=== PATIENT | male | born 1970 | race Caucasian/White ===

== ENCOUNTER 2017-09-13 16:47 | Emergency (ER) | payer SELFPAY ==
[~2017-09-13] VITALS: Ht 185.4 cm; Wt 78.9 kg
--- NOTE | 2017-09-13 17:30 | NUR ---
PATIENT TO BED 9.
[2017-09-13 18:10] VITALS: BP 139/89
--- NOTE | 2017-09-13 18:20 | NUR ---
PATIENT PRESENTS TO ED WITH BOIL/ABSCESS TO LEFT THIGH X 3 DAYS . PT STATES . DENIES N/V/D; SKIN IS PINK/WARM/DRY; AAOX4 WITH EVEN AND STEADY GAIT; LUNGS CLEAR BL; HR EVEN AND REGULAR; PT DENIES ANY FEVER, CP, SOB, OR COUGH AT THIS TIME; PATIENT STATES PAIN OF 3/10 AT THIS TIME; VSS; PATIENT POSITIONED FOR COMFORT; HOB ELEVATED; BEDRAILS UP X2; BED DOWN. ER MD MADE AWARE OF PT STATUS.
[2017-09-13] MEDS ORDERED: LIDOCAINE 1% 500 MG/50 ML VIAL INJ SCH (18:45)
[2017-09-13] MEDS ORDERED: BACITRACIN OINT 500 UNITS/GM PKT TP ONE (18:45)
--- NOTE | 2017-09-13 18:51 | NUR ---
BACITRACIN OINTMENT AND LIDOCAINE AT BEDSIDE---CHRISTI PALACIOS NOTIFIED
--- NOTE | 2017-09-13 19:00 | NUR ---
RECEIVED REPORT FROM AM NURSE. CHRISTI PALACIOS AT BEDSIDE AT THIS TIME PERFORMING I&D.
[2017-09-13 19:42] VITALS: BP 139/89
--- NOTE | 2017-09-13 19:42 | NUR ---
Patient discharged with v/s stable. Written and verbal after care instructions given and explained. Patient alert, oriented and verbalized understanding of instructions. Ambulatory with steady gait. All questions addressed prior to discharge. ID band removed. Patient advised to follow up with PMD. Rx of IBUPROFEN, KEFLEX, BACTRIM DS given. Patient educated on indication of medication including possible reaction and side effects. Opportunity to ask questions provided and answered.
== END 2017-09-13 19:42 | disposition home or self-care (01) ==
LOC: MED 16:47
DX: L02.416 Cutaneous abscess of left lower limb (principal); I10 Essential (primary) hypertension
CPT/HCPCS: 10060; 99283; J2001

== ENCOUNTER 2018-02-21 06:01 | Day surgery (SDC) | payer OTHER ==
[~2018-02-21] VITALS: Ht 188 cm; Wt 84.4 kg
[2018-02-21] MEDS ORDERED: LISI10TA11 PO (07:07)
[2018-02-21] MEDS ORDERED: ceFAZolin 1,000 MG VIAL ONE (07:18)
[2018-02-21] MEDS ORDERED: BUPIVACAINE-MPF/EPI 0.25% 30 ML VIAL INJ ONE (07:18)
[2018-02-21] MEDS ORDERED: CEFAZOLIN SODIUM 1 GM/D5W PM 50 ML IV SCH (07:20)
[2018-02-21] MEDS ORDERED: SEVOFLURANE 250 ML BTL INH ONE (07:41)
[2018-02-21] MEDS ORDERED: LIDOCAINE 2% 100 MG/5 ML SYR IVP ONE (07:41)
[2018-02-21] MEDS ORDERED: PROPOFOL 200 MG/20 ML VIAL IV ONE (07:41)
[2018-02-21] MEDS ORDERED: fentaNYL 0.05 MG/ML VIAL ONE (07:46)
[2018-02-21] MEDS ORDERED: MIDAZOLAM 2 MG/2 ML VIAL ONE (07:46)
[2018-02-21] MEDS ORDERED: HYDROmorphone 1 MG/ML AMP IVP PRN ×2 (08:15→10:30)
[2018-02-21] MEDS ORDERED: ONDANSETRON 4 MG/2 ML VIAL IVP PRN (08:15)
[2018-02-21] MEDS ORDERED: NACL 0.9% 1,000 ML IV SCH (10:28)
[2018-02-21] MEDS ORDERED: MORPHINE SULFATE 4 MG/ML SYR IV PRN (10:30)
[2018-02-21] MEDS ORDERED: ONDANSETRON 4 MG/2 ML VIAL IV PRN (10:30)
[2018-02-21] MEDS ORDERED: HYDROcodone/APAP 5/325 MG 1 TAB TAB PO PRN (10:30)
== END 2018-02-21 12:25 | disposition home or self-care (01) ==
LOC: MDS 06:01 → MMU 06:01 → MDS 12:25
PROVIDERS: ATTEND Surgery
DX: K42.9 Umbilical hernia without obstruction or gangrene (principal); K40.90 Unilateral inguinal hernia, without obstruction or gangrene, not specified as recurrent; I10 Essential (primary) hypertension; Z79.899 Other long term (current) drug therapy; Z98.890 Other specified postprocedural states
CPT/HCPCS: 49505; 49585; 71045; 93005; C1781; J0690; J2001; J2250; J2704; J3010; J3490; J7120

== ENCOUNTER 2023-09-28 09:19 | Emergency (ER) | payer OTHER ==
[~2023-09-28] VITALS: Ht 182.9 cm; Wt 90.7 kg
[~2023-09-28 09:19] MED LIST: LISI-951 PO
[2023-09-28 09:47] VITALS: BP 143/76; PULSE 61; RESP 18; TEMP 97.8; O2SAT 100
[2023-09-28] MEDS: MORPHINE SULFATE 4 MG/ML SYR IVP ONE (10:27)
[2023-09-28] MEDS: ONDANSETRON 4 MG/2 ML VIAL IVP ONE (10:30)
[2023-09-28 10:38] LABS: BASOPHILS # (AUTO) 0.1 K/uL (0.00-0.22); BASOPHILS % (AUTO) 0.5 % (0.0-2.0); EOSINOPHILS # (AUTO) 0.1 K/uL (0-0.4); EOSINOPHILS % (AUTO) 0.5 % (0.0-4.0); HEMATOCRIT 41.5 % (36-52); HEMOGLOBIN 13.8 g/dL (12.0-18.0); LYMPHOCYTES # (AUTO) 1.3 K/uL (2.0-11.5); LYMPHOCYTES % (AUTO) 11.3 % (20.5-51.1); MEAN CORPUSCULAR HEMOGLOBIN 30 pg (27-31); MEAN CORPUSCULAR HGB CONC 33 g/dL (33-37); MEAN CORPUSCULAR VOLUME 90.2 fL (80-94); MONOCYTES # (AUTO) 0.5 K/uL (0.8-1.0); MONOCYTES % (AUTO) 4.6 % (1.7-9.3); NEUTROPHILS # (AUTO) 9.2 K/uL (1.8-7.7); NEUTROPHILS % (AUTO) 83.1 % (42.2-75.2); PLATELET COUNT (AUTO) 178 K/uL (140-450); RED CELL DISTRIBUTION WIDTH 14.2 % (11.6-13.7); WHITE BLOOD COUNT (AUTO) 11.1 K/uL (4.8-10.8)
[2023-09-28 11:04] LABS: ANION GAP 12.8 (8-16); CALCIUM 8.8 mg/dL (8.5-10.1); CARBON DIOXIDE 26.4 mmol/L (21-32); CREATININE 0.8 mg/dL (0.6-1.3); POTASSIUM 4.2 mmol/L (3.5-5.1)
[2023-09-28 11:05] LABS: INR 0.92 (0.8-1.2); PROTHROMBIN TIME 9.7 secs (10.8-13.4)
[2023-09-28 11:10] LABS: BILIRUBIN,DIRECT 0.1 mg/dL (0.0-0.3); TOTAL BILIRUBIN 0.5 mg/dL (0.0-1.0); TOTAL PROTEIN, SERUM 7.4 g/dL (6.4-8.2)
[2023-09-28 11:46] LABS: APPEARANCE,URINE CLEAR (CLEAR); BILIRUBIN,URINE NEGATIVE (NEGATIVE); BLOOD, URINE 1+ (NEGATIVE); COLOR,URINE YELLOW (YELLOW); LEUKOCYTE ESTERASE ,URINE NEGATIVE (NEGATIVE); NITRITE, URINE NEGATIVE (NEGATIVE); PROTEIN,URINE NEGATIVE (NEGATIVE); UGLUCOSE NEGATIVE (NEGATIVE); UROBILINOGEN,URINE 0.2 EU/dL (0.2 - 1)
[2023-09-28 11:59] LABS: BACTERIA,URINE 1+ /HPF (None Seen); SQUAMOUS EPITHELIAL CELL,UR 0-3 (FEW) /LPF (0-3 (FEW)); WBC,URINE 0-5 /HPF (0-5)
[2023-09-28] MEDS: LEVOFLOXACIN 500 MG/D5W PREMIX 100 ML IV ONE (13:31)
[2023-09-28] MEDS ORDERED: LEVO750T75 PO (13:57)
[2023-09-28 14:46] VITALS: BP 125/72; PULSE 72; RESP 12; TEMP 97.8; O2SAT 98
== END 2023-09-28 14:46 | disposition home or self-care (01) ==
LOC: MED 09:19
DX: N45.1 Epididymitis (principal); I10 Essential (primary) hypertension; Z79.2 Long term (current) use of antibiotics; Z79.899 Other long term (current) drug therapy
CPT/HCPCS: 36415; 74177; 76870; 80048; 80076; 81001; 83605; 83690; 85025; 85610; 86886; 86900; 86901; 87086; 96365; 96375; 99285; J1956; J2270; J2405; Q0092; Q9967